=== PATIENT | female | born 1990 | race Asian ===

== ENCOUNTER 2018-01-30 17:09 | Outpatient (CLI) | END 2018-01-30 20:07 | disposition home or self-care (01) ==

== ENCOUNTER 2018-03-12 18:43 | Outpatient (CLI) | END 2018-03-12 22:15 | disposition home or self-care (01) ==

== ENCOUNTER → 2018-04-07 14:49 | Inpatient (IN) | END | disposition home or self-care (01) | DRG 766 ==